=== PATIENT | female | born 1955 | race Caucasian/White ===

== ENCOUNTER 2016-10-16 16:14 | Inpatient (IN) | payer OTHER, MEDICARE ==
[~2016-10-16] VITALS: Ht 162.6 cm; Wt 69.0 kg
[2016-10-19] MEDS ORDERED: FISH1000 PO (13:04)
[2016-10-19] MEDS ORDERED: CHOL1CAP6 PO (13:04)
[2016-10-19] MEDS ORDERED: FLUT1SPR5 EACH NARE (13:04)
[2016-10-19] MEDS ORDERED: PANT40TA3 PO (13:04)
[2016-10-19] MEDS ORDERED: LOVA20TA PO (13:04)
[2016-10-19] MEDS ORDERED: CETI10CA3 PO (13:04)
[2016-10-19] MEDS ORDERED: LEVO112T2 PO (13:04)
[2016-10-19] MEDS ORDERED: [UNRECOGNIZED DRUG - CODE] PO (13:04)
[2016-10-22] MEDS ORDERED: VANCOMYCIN HCL 1000 MG VIAL ONE (10:22)
[2016-10-22 10:27] VITALS: BP 100/68; PULSE 74; RESP 18; TEMP 97.8; O2SAT 98
[2016-10-22] MEDS ORDERED: SODIUM CHLORID 0.9% 500 ML IV PRN (10:45)
[2016-10-22] MEDS ORDERED: VANCOMYCIN HCL 1000 MG ON-CALL/NS 250 ML IV SCH ×2 (10:45)
[2016-10-22] MEDS ORDERED: LACTATED RINGER'S 1000 ML IV PRN (10:45)
[2016-10-22] MEDS ORDERED: INSULIN HUMAN REGULAR 1,000 UNITS/10 ML VIAL SQ PRN (10:45)
[2016-10-22] MEDS ORDERED: POVIDONE IODINE 5% (ANTISEPSIS KIT) 4 APPLICATIONS EACH NARE PRN (10:45)
[2016-10-22] MEDS ORDERED: METOPROLOL TARTRATE 25 MG TAB PO PRN (10:45)
[2016-10-22] MEDS ORDERED: CHLORHEXIDINE GLUCONATE 2 % 1 PACK (2 CLOTHS) TOPICAL PRN (10:45)
[2016-10-22] MEDS ORDERED: BUPIVACAINE HCL PF 0.25% 30 ML VIAL ONE (11:53)
[2016-10-22] MEDS ORDERED: ONDANSETRON HCL 4 MG/2 ML VIAL IV PUSH ONE (12:00)
[2016-10-22] MEDS ORDERED: PROPOFOL 200 MG/20 ML AMP IV ONE (12:00)
[2016-10-22] MEDS ORDERED: LACTATED RINGER'S 1000 ML INJ 1,000 ML IV ONE (12:00)
[2016-10-22] MEDS ORDERED: DEXAMETHASONE SOD PHOS 4 MG/ML VIAL ONE (12:08)
[2016-10-22] MEDS ORDERED: MIDAZOLAM HCL 2 MG/2 ML VIAL ONE (12:08)
[2016-10-22] MEDS ORDERED: FAMOTIDINE 20 MG/2 ML VIAL ONE (12:09)
[2016-10-22] MEDS ORDERED: SUGAMMADEX SODIUM 200 MG/2 ML VIAL IV PUSH ONE ×2 (13:46)
[2016-10-22] MEDS ORDERED: Post-op Orders (for Pharmacy) MISC XX ONE (14:15)
[2016-10-22] MEDS ORDERED: fentaNYL CITRATE 250 MCG/5 ML AMP ONE (14:17)
[2016-10-22] MEDS ORDERED: SODIUM CHLORIDE 0.9% FLUSH 10 ML FLUSH IV FLUSH PRN (14:30)
[2016-10-22] MEDS ORDERED: ONDANSETRON HCL 4 MG/2 ML VIAL IV PRN (14:30)
[2016-10-22] MEDS: LACTATED RINGER'S 1000 ML INJ 1,000 ML IV SCH (14:30)
[2016-10-22] MEDS ORDERED: *morphine SULFATE 8 MG/ML PERIprocedure ONLY ONE (14:34)
[2016-10-22] MEDS ORDERED: DO NOT ADM ANY ANTICOAGULANT DRUGS PRN (14:45)
--- NOTE | 2016-10-22 15:09 | RADRPT ---
EXAM DATE/TIME: 10/22/2016 14:30 [facility] COMPARISON: No previous studies available for comparison. INDICATIONS : Short of breath. MEDICAL HISTORY : None. SURGICAL HISTORY : None. ENCOUNTER: Initial ACUITY: 1 day PAIN SCORE: 0/10 LOCATION: Bilateral chest FINDINGS: Portable AP view of the chest demonstrates a normal-sized cardiac silhouette. Lungs are underinflated . There are interstitial opacities bilaterally relatively diffusely. There are linear opacities in th e right mid and right lower lung zone. No airspace consolidation or pneumothorax is identified. There is no pleural effusion seen. Bones and soft tissues demonstrate no acute finding. CONCLUSION: 1. Bilateral relatively diffuse interstitial opacities of uncertain chronicity. However, in the acute setting this could represent interstitial pulmonary edema. 2. Linear opacities in the right mid and lower lung zone representing either subsegmental atelectasis or parenchymal scar. Anoop Landry MD on October 22, 2016 at 15:07 Board Certified Radiologist. This report was verified electronically.
[2016-10-22] MEDS: HYDROmorphone HCL PF 1 MG/ML VIAL IV PRN ×2 (15:30→20:36)
--- NOTE | 2016-10-22 16:52 | EKG ---
Date Performed: 10/22/2016 Time Performed: 10:19:35 PTAGE: 61 years EKG: Sinus rhythm NORMAL ECG PREVIOUS TRACING : 05/01/2012 10.03 Compared to prior tracing no significant change DOCTOR: Génesis Emerson Interpretating Date/Time 10/22/2016 16:49:29
[2016-10-22 17:38] VITALS: BP 150/93; PULSE 85; RESP 17; TEMP 97.4; O2SAT 90
[2016-10-22 20:00] VITALS: BP 141/78; PULSE 90; RESP 16; TEMP 98; O2SAT 92
[2016-10-22] MEDS: PRAVASTATIN SOD 20 MG TAB PO SCH (20:36)
[2016-10-22] MEDS: SODIUM CHLORIDE 0.9% FLUSH 10 ML FLUSH IV FLUSH SCH (20:36)
[2016-10-22 21:00] VITALS: O2SAT 83
--- NOTE | 2016-10-22 21:48 | RADRPT ---
EXAM DATE/TIME: 10/22/2016 21:37 [facility] COMPARISON: No previous studies available for comparison. INDICATIONS : Dyspnea and chest pain. MEDICAL HISTORY : None. SURGICAL HISTORY : None. ENCOUNTER: Subsequent ACUITY: 1 day PAIN SCORE: 3/10 LOCATION: Bilateral chest FINDINGS: There is bibasilar infiltrate, slightly improved on the right and slightly worse on the left. No larg e effusion seen. No pneumothorax. Heart size stable, within normal limits. CONCLUSION: Basilar predominant bilateral infiltrates. Anoop Torres MD on October 22, 2016 at 21:45 Board Certified Radiologist. This report was verified electronically.
[2016-10-22 21:51] LABS: BLOOD GAS BASE EXCESS 0.1 mmol/L (-2-2); BLOOD GAS CARBOXYHEMOGLOBIN 1.3 % (0-4); BLOOD GAS HCO3 25 mmol/L (22-26); BLOOD GAS METHEMOGLOBIN 0.7 % (0-2); BLOOD GAS O2 HGB SATURATION 91 % (90-100); BLOOD GAS OXYGEN CONTENT 17.6 Vol % (12.0-20.0); BLOOD GAS PCO2 43 mmHg (38-42); BLOOD GAS PO2 68 mmHg (61-120); BLOOD GAS TOTAL HGB 13.8 G/DL (12.0-16.0); TEMP CORR TO 98.6
[2016-10-22 21:52] LABS: CRITICAL VALUE NO; DRAW SITE RT RADIAL; LITER FLOW 4 L/M; NUMBER OF ARTERIAL PUNCTURES 1; OXYGEN DEVICE NASAL CANNULA; STAT YES; ULNAR PULSE PRESENT
[2016-10-22 22:36] VITALS: O2SAT 91
[2016-10-23] VITALS (8 sets, daily range): BP systolic 122–163; BP diastolic 72–84; PULSE 75–89; RESP 16–17; TEMP 96.7–98.7; O2SAT 91–97
[2016-10-23] MEDS: HYDROmorphone HCL PF 1 MG/ML VIAL IV PRN ×6 (00:42→21:32)
[2016-10-23] MEDS: LACTATED RINGER'S 1000 ML INJ 1,000 ML IV SCH ×3 (00:43→20:21)
[2016-10-23] MEDS: LEVOTHYROXINE SODIUM 112 MCG TAB PO SCH (04:27)
[2016-10-23] MEDS: CHOLECALCIFEROL (VIT D3) 1000 UNIT TAB PO SCH (08:16)
[2016-10-23] MEDS: PANTOPRAZOLE SOD 40 MG DELAYED RELEASE TAB PO SCH (08:16)
[2016-10-23] MEDS: CETIRIZINE HCL 10 MG TAB PO SCH (08:16)
[2016-10-23] MEDS: SODIUM CHLORIDE 0.9% FLUSH 10 ML FLUSH IV FLUSH SCH ×2 (08:17→21:00)
[2016-10-23] MEDS ORDERED: PSEUDOEPHEDRINE PO SCH (09:00)
[2016-10-23] MEDS ORDERED: PSEUDOEPHEDRINE 120 MG PO SCH (09:00)
[2016-10-23] MEDS ORDERED: NON-FORMULARY DRUG (Omega-3 Fatty Acids (Fish Oil) 2,000 MG) PO SCH (09:00)
--- NOTE | 2016-10-23 09:55 | HHI.PR ---
Subjective Subjective Notes DAILY PROGRESS NOTE FOR SURGICAL ATTENDING, DR. JOSE JC Doing well Said she had some vivid dreams last night A little unsteady on her feet Some shoulder pain Objective Vitals/I&O Vital Signs Date Time Temp Pulse Resp B/P Pulse Ox O2 Delivery O2 Flow Rate FiO2 10/23/16 08:35 94 Nasal Cannula 4.00 10/23/16 08:00 97.9 80 16 122/80 Labs Laboratory Tests Test 10/22/16 21:45 Blood Gas Puncture Site RT RADIAL Blood Gas Patient Temperature 98.6 Blood Gas HCO3 25 Blood Gas Base Excess 0.1 Blood Gas Oxygen Saturation 91 Arterial Blood pH 7.38 Arterial Blood Partial 43 Pressure CO2 Arterial Blood Partial 68 Pressure O2 Arterial Blood Oxygen Content 17.6 Arterial Blood 1.3 Carboxyhemoglobin Arterial Blood Methemoglobin 0.7 Blood Gas Hemoglobin 13.8 Oxygen Delivery Device NASAL CANNULA Blood Gas Liter Flow 4 Radiology Last Impressions Chest X-Ray 10/22/16 0000 Signed Impressions: Service Date/Time: Saturday, October 22, 2016 21:37 - CONCLUSION: Basilar predominant bilateral infiltrates. Anoop Torres MD Cardiovascular: Regular Lungs: Clear Abdomen: Non-distended, Post-op tenderness Extremities: SCD's on A/P Problem List: (1) Status post laparoscopic Seth fundoplication (2) Hiatal hernia with GERD (3) History of esophageal stricture Assessment and Plan 60-year-old female status post hiatal hernia repair and Seth fundoplication. She had some mild decreased saturations last night She is a little unsteady on her feet Plan slowly advance diet anticipate discharge in possibly today with the next 24 hours Attending Statement NOTE FOR SURGICAL ATTENDING, DR. JOSE JC I attest that I had a [id number] encounter with the patient on the same day, and personally performed and documented my assessment and findings in the medical record. The following services were provided during this hospital visit: Chart data review, vital sign assessments/reviewing monitor data Review of consultations notes if present. Medication orders/review and/or management Ordering and/or reviewing lab tests Ordering and/or interpreting/reviewing x-rays and/or diagnostic studies Care of the patient and discussion of the patient with the care team Documentation time To help prompt me to consider important information that might be impacting today's encounter and assessment, information from prior notes written by myself or my colleagues may have been "brought forward/copy and pasted" into today's note. Jose Jc MD Oct 23, 2016 09:55
[2016-10-23] MEDS ORDERED: NORC5TAB PO (09:58)
--- NOTE | 2016-10-23 18:25 | MP ---
cc: LIZZETTE JC DATE OF SURGERY 10/23/16 PREOPERATIVE DIAGNOSIS Large hiatal hernia with esophageal stricture from reflux previously dilated POSTOPERATIVE DIAGNOSIS Large hiatal hernia with esophageal stricture from reflux previously dilated PROCEDURE 1. Reduction repair of hiatal hernia with BioA mesh. 2. Seth fundoplication around a 50-Citizen Of [place] bougie. ANESTHESIA General SURGEON Dr. Veronica Jc ASSISTANTG Dr. Nacho Black INDICATIONS This is a pleasant lady who has had longstanding problems with a hiatal hernia. She was seen by a billing representative who found a benign stricture in her esophagus. This was dilated. She also was found to have a sizeable hiatal hernia. Plans were made for repair of the hiatal hernia with Seth fundoplication. Intraoperatively she had sizable hiatal hernia which was reduced and a fundoplication performed. PROCEDURE IN DETAIL The patient was placed in supine position. After endotracheal anesthesia, her abdomen was prepped and draped with Betadine. Time-out was done identifying her as Diana Zhao. We anesthetized just above the umbilicus, 10 mm trocar was directly entered into the abdomen and insufflated to 50 mmHg. The camera was introduced. Four other working ports were placed, two in the right side of the abdomen and two in the left to facilitate out dissection. Liver retractor is placed to retract the liver with the robot arm in the right lower quadrant. This exposes the sizeable hiatal hernia. Photos are taken. We first take the lesser curve down by the stomach away from the cru anteriorly pulling the stomach out of the chest from the hiatal hernia. Sac is away. We then take the short gastrics down along the greater curve to facilitate exposure of the posterior window and dissect up into the chest to completely reduce the stomach into the abdomen. This is done under no tension. We then are able to see both the right and left david. We are able to reapproximate the diaphragmatic crux with two of the Ethibond suture using the commercial real estate assistant device with a slit of mesh placed in between to facilitate fibrosis and scarring down of the hiatus to close this gap. After this was done, we then placed sequential bougies from a [address] a 52 sequentially. We then are able to get the fundus around the posterior aspect of the esophagus and create a wrap using 0 Ethibond with a suture commercial real estate assistant securing the Seth fundoplication wrap to the right side of the stomach, esophagus and the wrap portion of the fundus. Vagus nerve was preserved. Once this was secured, we then remove the bougie. The Bio-A mesh is then placed somewhat widened and placed in an inverted C orientation to cover the anterior portion of the esophagus in the reapproximated diaphragmatic crux. This is secured in place with a 0 Ethibond suture commercial real estate assistant and then glued into place with Tisseel. I did not feel it was necessary to gastropexy or gastrostomy tube because the stomach was under no tension and simply sat in the orientation in the abdomen. After this was done, we did check the liver. It is smooth and no gross abnormalities seen. The gallbladder appeared normal, we remove all the trocars. There is no bleeding. The 0 Vicryl was used to close the umbilical fascial defect and the skin is closed with 4-0 Monocryl. Steri-Strips applied. Sterile bandage applied. The patient tolerated the procedure well and had no immediate postop complications. MD JOSE Sanches/ /2:31 PM /6:08 PM MTDFelisa
[2016-10-23] MEDS: PRAVASTATIN SOD 20 MG TAB PO SCH (21:32)
[2016-10-24] VITALS: BP 124/76; PULSE 81; RESP 17; TEMP 96; O2SAT 96
[2016-10-24] MEDS: HYDROmorphone HCL PF 1 MG/ML VIAL IV PRN ×3 (01:56→14:02)
[2016-10-24] MEDS: LACTATED RINGER'S 1000 ML INJ 1,000 ML IV SCH (02:43)
[2016-10-24] MEDS: LEVOTHYROXINE SODIUM 112 MCG TAB PO SCH (05:01)
[2016-10-24 08:00] VITALS: BP 148/87; PULSE 82; RESP 16; TEMP 97; O2SAT 92
[2016-10-24] MEDS: CHOLECALCIFEROL (VIT D3) 1000 UNIT TAB PO SCH (08:40)
[2016-10-24] MEDS: PANTOPRAZOLE SOD 40 MG DELAYED RELEASE TAB PO SCH (08:40)
[2016-10-24] MEDS: CETIRIZINE HCL 10 MG TAB PO SCH (08:40)
[2016-10-24] MEDS: SODIUM CHLORIDE 0.9% FLUSH 10 ML FLUSH IV FLUSH SCH ×2 (08:40→21:34)
[2016-10-24 09:29] VITALS: O2SAT 93
[2016-10-24 12:00] VITALS: BP 137/83; PULSE 85; RESP 18; TEMP 97.3; O2SAT 96
--- NOTE | 2016-10-24 15:55 | HHI.PR ---
Subjective Subjective Notes DAILY PROGRESS NOTE FOR SURGICAL ATTENDING, DR. JOSE JC still unsteady on feet weaning from O2 Objective Vitals/I&O Vital Signs Date Time Temp Pulse Resp B/P Pulse Ox O2 Delivery O2 Flow Rate FiO2 10/24/16 14:32 18 10/24/16 12:00 97.3 85 137/83 96 10/23/16 19:53 Nasal Cannula 4.00 Labs Laboratory Tests Test 10/22/16 21:45 Blood Gas Puncture Site RT RADIAL Blood Gas Patient Temperature 98.6 Blood Gas HCO3 25 mmol/L Blood Gas Base Excess 0.1 mmol/L Blood Gas Oxygen Saturation 91 % Arterial Blood pH 7.38 Arterial Blood Partial 43 mmHg Pressure CO2 Arterial Blood Partial 68 mmHg Pressure O2 Arterial Blood Oxygen Content 17.6 Vol % Arterial Blood 1.3 % Carboxyhemoglobin Arterial Blood Methemoglobin 0.7 % Blood Gas Hemoglobin 13.8 G/DL Oxygen Delivery Device NASAL CANNULA Blood Gas Liter Flow 4 L/M Radiology Last Impressions Chest X-Ray 10/22/16 0000 Signed Impressions: Service Date/Time: Saturday, October 22, 2016 21:37 - CONCLUSION: Basilar predominant bilateral infiltrates. Anoop Torres MD Cardiovascular: Regular Lungs: Clear Abdomen: Post-op tenderness Extremities: Perfused A/P Problem List: (1) Status post laparoscopic Seth fundoplication (2) Hiatal hernia with GERD (3) History of esophageal stricture Assessment and Plan 60-year-old female status post hiatal hernia repair and Seth fundoplication. Feeling better but She is a little unsteady on her feet Weaning oxygen today Plan slowly advance diet anticipate discharge in possibly today with the next 24 hours Attending Statement NOTE FOR SURGICAL ATTENDING, DR. JOSE JC . I attest that I had a [id number] encounter with the patient on the same day, and personally performed and documented my assessment and findings in the medical record. The following services were provided during this hospital visit: Chart data review, vital sign assessments/reviewing monitor data Review of consultations notes if present. Medication orders/review and/or management Ordering and/or reviewing lab tests Ordering and/or interpreting/reviewing x-rays and/or diagnostic studies Care of the patient and discussion of the patient with the care team Documentation time To help prompt me to consider important information that might be impacting today's encounter and assessment, information from prior notes written by myself or my colleagues may have been "brought forward/copy and pasted" into today's note. Jose Jc MD Oct 24, 2016 15:55
[2016-10-24 16:00] VITALS: BP 129/80; PULSE 86; RESP 17; TEMP 97.1; O2SAT 92
[2016-10-24] MEDS: ACETAMINOPHEN/HYDROcodone 325 MG/5 MG TAB PO PRN ×2 (17:48→21:33)
[2016-10-24 20:00] VITALS: BP 151/87; PULSE 83; RESP 16; TEMP 98.5; O2SAT 95
[2016-10-24] MEDS: PRAVASTATIN SOD 20 MG TAB PO SCH (21:33)
[2016-10-25] VITALS: BP 131/79; PULSE 73; RESP 18; TEMP 97.6; O2SAT 96
[2016-10-25] MEDS: LEVOTHYROXINE SODIUM 112 MCG TAB PO SCH (05:06)
[2016-10-25] MEDS: ACETAMINOPHEN/HYDROcodone 325 MG/5 MG TAB PO PRN ×2 (05:06→09:22)
[2016-10-25] MEDS: CHOLECALCIFEROL (VIT D3) 1000 UNIT TAB PO SCH (09:23)
[2016-10-25] MEDS: CETIRIZINE HCL 10 MG TAB PO SCH (09:23)
[2016-10-25] MEDS: PANTOPRAZOLE SOD 40 MG DELAYED RELEASE TAB PO SCH (09:23)
[2016-10-25 11:07] VITALS: O2SAT 95
== END 2016-10-25 13:23 | disposition home or self-care (01) | DRG 328 ==
LOC: INTOOBSV 10-22 09:31 → HSDI 10-22 09:31 → N07B 10-22 17:00 → OBSVTOIN 10-25 10:21
PROVIDERS: ADMIT Surgery; ATTEND Surgery
PROC: 0DV44ZZ Restriction of Esophagogastric Junction, Percutaneous Endoscopic Approach (ICD-10-PCS; principal; 2016-10-25)
PROC: 0BUR4JZ (ICD-10-PCS; 2016-10-25)
PROC: 0BUS4JZ (ICD-10-PCS; 2016-10-25)
DX: K44.9 Diaphragmatic hernia without obstruction or gangrene (principal); K22.2 Esophageal obstruction; K21.9 Gastro-esophageal reflux disease without esophagitis
CPT/HCPCS: 36600; 71010; 82805; 93005; 94150; C1781; J1100; J1170; J2250; J2270; J2405; J3010; J3370; J7050; J7120